=== PATIENT | female | born 1960 | race Caucasian/White ===

== ENCOUNTER 2018-03-17 11:42 | Outpatient (CLI) | payer BC | END 2018-03-17 11:43 | disposition home or self-care (01) | LOC: BICRAD 11:42 | PROVIDERS: ATTEND Specialist | DX: M23.611 Other spontaneous disruption of anterior cruciate ligament of right knee (principal); M17.11 Unilateral primary osteoarthritis, right knee ==

== ENCOUNTER 2018-08-03 10:04 | Emergency (ER) | payer BC ==
[2018-08-03 10:36] LABS: #Basophils 0.1 thou/uL (0.0-0.2); #Eosinphils 0.3 thou/uL (0.0-0.7); #Lymphocytes 1.9 thou/uL (1.20-3.40); #Monocytes 0.5 thou/uL (0.11-0.59); #Neutrophils 3.4 thou/uL (1.40-6.50); %Basophils 1.4 % (0.0-1.0); %Eosinophils 5.3 % (0.0-10.0); %Monocytes 8.4 % (0.0-10.0); %Neutrophils 54.8 % (42.0-75.0); Hemoglobin 13.7 g/dL (12.0-16.0); Mean Corpuscular HGB CONC 32.6 g/dL (32.0-36.0); Mean Corpuscular Hemoglobin 29.1 pg (27.0-31.0); Mean Corpuscular Volume 89.4 fL (78.0-98.0); Mean Platelet Volume 6.5 fL (7.4-10.4); Platelet Count 283 thou/uL (130-400); RBC Distribution Width 12.4 % (11.5-14.5); White Blood Cell (WBC) Count 6.3 thou/uL (4.8-10.8)
--- NOTE | 2018-08-03 10:52 | RAD ---
UPRIGHT PORTABLE CHEST ONE VIEW: HISTORY: A 57-year-old female with a history of chest pain. FINDINGS: Monitor leads overly the chest. Heart size is within normal limits. Minimal linear and parenchymal changes in the right breast, probably subsegmental atelectasis. No confluent pneumonia, overt edema, or pleural effusion. IMPRESSION: Mild linear changes, particularly in the right base, possibly chronic versus very mild subsegmental a telectasis without confluent pneumonia, overt edema, or other acute process. POS: [facility]
[2018-08-03 10:56] LABS: ALT (SGPT) 12 U/L (8-55); AST (SGOT) 17 U/L (5-34); Albumin 3.6 g/dL (3.5-5.0); Alkaline Phosphatase 85 U/L (40-150); Anion Gap 16 mmol/L (10-20); BUN (Urea Nitrogen) 12 mg/dL (9.8-20.1); Bilirubin, Total 0.4 mg/dL (0.2-1.2); CK (CPK) 46 U/L (29-168); Calc. Creatinine Clearance 0 mL/min (70-130); Carbon Dioxide 27 mmol/L (22-29); Chloride 97 mmol/L (98-107); Estimated GFR-MDRD 54; Globulin 3.2 g/dL (2.4-3.5); Glucose 97 mg/dL (70-105); Potassium 4.2 mmol/L (3.5-5.1); Protein, Total 6.8 g/dL (6.0-8.3); Sodium 136 mmol/L (136-145)
[2018-08-03 11:04] LABS: CKMB 0.4 ng/mL (0-6.6); Troponin I Less than 0.010 ng/mL (< 0.028)
[2018-08-03] MEDS ORDERED: Acetaminophen 500 MG TAB ONE (11:08)
[2018-08-03] MEDS ORDERED: ISOVUE-370 76%-LOCM 1 ML ONE (12:53)
--- NOTE | 2018-08-03 13:02 | CT ---
CT PULMONARY ANGIOGRAM CHEST WITH 3D RENDERING: HISTORY: A 57-year-old female with a history of dyspnea and chest pain. FINDINGS: There are some minimal posterior pleural-based parenchymal changes probably related to positional cheri nge. There is very severe motion artifact throughout the entire scan which very significantly limits the quality of the study. There is no central pulmonary artery thrombosis. The more peripheral pul monary arteries are inadequately evaluated on this study. No significant acute pleural effusion or p ericardial effusion. IMPRESSION: Severely limited study because of very severe motion artifact. No convincing CT evidence for central pulmonary artery thrombosis. The more peripheral pulmonary artery branches are inadequately evaluat ed because of the severe motion, but no convincing evidence definitive acute PE. POS: [facility]
== END 2018-08-03 12:50 | disposition short-term general hospital (02) ==
LOC: ERS 10:04
DX: R07.9 Chest pain, unspecified (principal); F17.210 Nicotine dependence, cigarettes, uncomplicated; F41.9 Anxiety disorder, unspecified; F32.9 Major depressive disorder, single episode, unspecified; Z79.899 Other long term (current) drug therapy
CPT/HCPCS: 36415; 71045; 71275; 80053; 82553; 84484; 85025; 85379; 93005